=== PATIENT | female | born 1990 | race African-American/Black ===

== ENCOUNTER 2017-06-08 10:51 | Emergency (ER) | payer SELFPAY ==
[2017-06-08 10:57] VITALS: BP 140/93
[2017-06-08] MEDS ORDERED: PSEUDOEPHEDRINE HCL 30 MG TABLET PO ONE (11:06)
[2017-06-08] MEDS ORDERED: ACETAMINOPHEN 325 MG TABLET PO ONE (11:06)
--- NOTE | 2017-06-08 11:11 | ER Document Report ---
HPI - HPI Patient complains to provider of: sinus presure and headache Onset: Other - saturday Onset/Duration: Persistent Quality of pain: Pressure Pain Level: 4 Associated Symptoms: Headache, Rhinnorhea, Sinus pain/drainage Exacerbated by: Other - bending over Relieved by: Denies - photophobia, sound sensitivity, aura Similar symptoms previously: No - easton h/o migraines Notes: taking aleve and pseudophedribe once - DERM Skin Color: Normal Past Medical History - Social History Smoking Status: Former Smoker Family History: Reviewed & Not Pertinent Renal/ Medical History: Denies: Hx Peritoneal Dialysis Vertical Provider Document - CONSTITUTIONAL Agree With Documented VS: Yes Exam Limitations: No Limitations General Appearance: WD/WN, No Apparent Distress - INFECTION CONTROL TRAVEL OUTSIDE OF THE [place] IN LAST 30 DAYS: No - HEENT HEENT: Atraumatic, Normocephalic, PERRLA. negative: Pharyngeal Exudate, Pharyngeal Tenderness, Pharyngeal Erythema, Tympanic Membrane Red, Tympanic Membrane Bulging Notes: sinus tendnerness of left frontal sinus without drainage or redness. Uvula midline. Airway patent. No evidence of tonsillar enlargement, peritonsillar abscess, retropharyngeal abscess. - NECK Neck: Normal Inspection. negative: Lymphadenopathy-Left, Lymphadenopathy-Right - RESPIRATORY Respiratory: Breath Sounds Normal, No Respiratory Distress, Chest Non-Tender. negative: Rales, Rhonchi, Wheezing, Other O2 Sat by Pulse Oximetry: 99 - CARDIOVASCULAR Cardiovascular: Regular Rate, Regular Rhythm, No Murmur Course - Re-evaluation Re-evalutation: 06/08/17 11:09 Patient is a 18-year-old female significant stable, no acute distress afebrile. Vital signs without any evidence of fever, tachycardia. Presentation and exam are consistent with sinus congestion without infection no evidence of fever , purulent drainage.. Will treat patient with [id number] medications After performing a Medical Screening Examination, I estimate there is LOW risk for ACUTE CORONARY SYNDROME, RESPIRATORY FAILURE, SEPSIS OR MENINGITIS, thus I consider the discharge disposition reasonable. I have reevaluated this patient multiple times and no significant life threatening changes are noted. The patient and I have discussed the diagnosis and risks, and we agree with discharging home with close follow-up. We also discussed returning to the Emergency Department immediately if new or worsening symptoms occur. We have discussed the symptoms which are most concerning (e.g., changing or worsening pain, trouble swallowing or breathing, neck stiffness, fever) that necessitate immediate return. - Vital Signs Vital signs: Temp Pulse Resp BP Pulse Ox 98.5 F 110 H 20 140/93 H 99 06/08/17 10:55 06/08/17 10:55 06/08/17 10:55 06/08/17 10:55 06/08/17 10:55 Discharge - Discharge Clinical Impression: Sinus congestion Condition: Good Disposition: HOME, SELF-CARE Additional Instructions: For sinus congestion he can utilize a [place] pot, [id number] antihistamine such as Benadryl, Claritin, Zyrtec, Priyanka. Please continue to use pseudoephedrine as directed on the back of the box. You can also use Tylenol Cold and sinus.
== END 2017-06-08 11:16 | disposition home or self-care (01) ==
LOC: ER 10:51
DX: R09.81 Nasal congestion (principal); J34.89 Other specified disorders of nose and nasal sinuses; R51 Headache; Z87.891 Personal history of nicotine dependence
CPT/HCPCS: 99283